=== PATIENT | female | born 1985 | race Caucasian/White ===

== ENCOUNTER 2022-04-26 23:20 | Emergency (ER) | payer OTHER ==
[2022-04-26 23:29] VITALS: BP 101/70; PULSE 100; TEMP 98; BMI 27.4
== END 2022-04-27 08:51 | disposition home or self-care (01) ==
LOC: JER 23:20
DX: F10.10 Alcohol abuse, uncomplicated (principal)
CPT/HCPCS: 99281-25

== ENCOUNTER 2022-04-27 13:04 | Inpatient (IN) | payer OTHER ==
[2022-04-27] MEDS ORDERED: diazePAM 2 MG TABLET PO ONE ×2 (13:58→18:47)
[2022-04-27] MEDS ORDERED: diazePAM 2 MG TABLET ONE ×2 (14:38→19:23)
[2022-04-27] MEDS ORDERED: ACETAMINOPHEN 1000 MG/100 ML BAG IVPB ONE (15:41)
[2022-04-27] MEDS ORDERED: SODIUM CHLORIDE 0.9% 500 ML INFUS.BAG IV ONE (15:41)
[2022-04-27] MEDS ORDERED: ACETAMINOPHEN INJECTION 100 ML IVPB ONE (15:53)
[2022-04-27 15:55] LABS: BASO % 0.5 % (0-2.0); EOS % 0.5 % (0-4.5); HEMATOCRIT 41.2 % (32.4-45.2); MCH 30.8 pg (25.7-33.7); MEAN CELL VOLUME 90.5 fl (80-96); MEAN PLT VOLUME 7.7 fl (7.5-11.1); MONO % 6.9 % (3.8-10.2); NEUT % 61.1 % (42.8-82.8); PLATELET COUNT 327 10^3/uL (134-434); RBC 4.55 M/mm3 (3.60-5.2); RDW 15.5 % (11.6-15.6)
[2022-04-27 16:11] LABS: ALBUMIN 4.4 g/dl (3.4-5.0); BLOOD UREA NITROGEN 9.7 mg/dL (7-18); CALCIUM 9.3 mg/dL (8.5-10.1)
[2022-04-27 16:14] LABS: CREATININE 0.6 mg/dL (0.55-1.3)
[2022-04-27 16:16] LABS: BILIRUBIN,TOTAL 0.4 mg/dL (0.2-1); TOT PROT 7.4 g/dl (6.4-8.2)
[2022-04-27] MEDS ORDERED: RHO(D) IMMUNE GLOBULIN 1,500 UNIT DISP.SYRIN IM ONE (18:06)
[2022-04-27] MEDS ORDERED: FOLIC ACID INJECTION - 1 MG, THIAMINE HCL 100 MG, MULTIVIT INJECTION ADULT 10 ML in SOD... IVPB ONE (21:00)
[2022-04-27] MEDS ORDERED: LORazepam 1 MG TABLET ONE (23:12)
[2022-04-27] MEDS: LORazepam 1 MG TABLET PO SCH (23:22)
[2022-04-28 03:00] VITALS: BMI 27.1
[2022-04-28] MEDS: LORazepam 1 MG TABLET PO SCH ×4 (06:02→22:34)
[2022-04-28] MEDS: ENOXAPARIN NA (PORCINE) 40 MG/0.4 ML DISP.SYRIN SQ SCH (09:23)
[2022-04-28] MEDS: THIAMINE HCL 200 MG/2 ML VIAL IVPB SCH (09:24)
[2022-04-28 10:30] LABS: HEMATOCRIT 37.9 % (32.4-45.2); HEMOGLOBIN 13.1 GM/dL (10.7-15.3); MCH 31.3 pg (25.7-33.7); MCHC 34.5 g/dl (32.0-36.0); MEAN CELL VOLUME 90.6 fl (80-96); PLATELET COUNT 290 10^3/uL (134-434); RBC 4.19 M/mm3 (3.60-5.2); RDW 15.6 % (11.6-15.6); WHITE BLOOD COUNT 4.7 K/mm3 (4.0-10.0)
[2022-04-28 10:52] LABS: BLOOD UREA NITROGEN 7.6 mg/dL (7-18); CALCIUM 8.5 mg/dL (8.5-10.1); MAGNESIUM 2.1 mg/dL (1.8-2.4)
[2022-04-28 10:55] LABS: PHOSPHOROUS 2.5 mg/dL (2.5-4.9)
[2022-04-28 10:56] LABS: CREATININE 0.6 mg/dL (0.55-1.3)
[2022-04-28 10:59] LABS: BILIRUBIN,TOTAL 0.6 mg/dL (0.2-1)
[2022-04-28 11:05] LABS: ALBUMIN 3.2 g/dl (3.4-5.0)
[2022-04-28] MEDS: NICOTINE 7 MG/24 HOURS TOPICAL PATCH TD SCH (12:12)
[2022-04-28] MEDS: LORazepam 1 MG TABLET PO PRN (15:19)
[2022-04-28] MEDS: QUEtiapine FUMARATE 200 MG TABLET PO SCH (21:56)
[2022-04-29] MEDS: LORazepam 1 MG TABLET PO SCH ×4 (05:30→22:08)
[2022-04-29] MEDS: ONDANSETRON 4 MG/2 ML VIAL IVPUSH PRN (07:53)
[2022-04-29] MEDS: ACETAMINOPHEN 325 MG TABLET (FP) PO PRN ×2 (08:24→16:31)
[2022-04-29 08:45] LABS: BASO % 0.4 % (0-2.0); EOS % 1.3 % (0-4.5); HEMATOCRIT 41.3 % (32.4-45.2); HEMOGLOBIN 14.1 GM/dL (10.7-15.3); LYMPH % 39.9 % (8-40); MCH 30.9 pg (25.7-33.7); MCHC 34.2 g/dl (32.0-36.0); MEAN CELL VOLUME 90.3 fl (80-96); MONO % 9.5 % (3.8-10.2); NEUT % 48.9 % (42.8-82.8); PLATELET COUNT 291 10^3/uL (134-434); RBC 4.57 M/mm3 (3.60-5.2); RDW 15.6 % (11.6-15.6); WHITE BLOOD COUNT 5.4 K/mm3 (4.0-10.0)
[2022-04-29 09:01] LABS: ALBUMIN 3.6 g/dl (3.4-5.0); BLOOD UREA NITROGEN 7.9 mg/dL (7-18); MAGNESIUM 2.2 mg/dL (1.8-2.4)
[2022-04-29 09:04] LABS: CREATININE 0.6 mg/dL (0.55-1.3)
[2022-04-29 09:06] LABS: BILIRUBIN,TOTAL 0.4 mg/dL (0.2-1); TOT PROT 6.8 g/dl (6.4-8.2)
[2022-04-29] MEDS: PRENATAL VITAMINS W/ FOLIC ACID TABLET (FP) PO SCH (09:08)
[2022-04-29] MEDS: THIAMINE HCL 200 MG/2 ML VIAL IVPB SCH (09:08)
[2022-04-29] MEDS: NICOTINE 7 MG/24 HOURS TOPICAL PATCH TD SCH (09:08)
[2022-04-29] MEDS: ENOXAPARIN NA (PORCINE) 40 MG/0.4 ML DISP.SYRIN SQ SCH (09:09)
[2022-04-29] MEDS: LORazepam 1 MG TABLET PO PRN (09:41)
[2022-04-29] MEDS ORDERED: NICOTINE 14 MG/24 HOURS TOPICAL PATCH TD SCH (10:00)
[2022-04-29] MEDS: NICOTINE 21 MG/24 HOURS TOPICAL PATCH TD SCH (11:34)
[2022-04-29] MEDS: NICOTINE POLACRILEX 2 MG GUM BUC PRN ×2 (16:34→20:40)
[2022-04-29] MEDS: QUEtiapine FUMARATE 200 MG TABLET PO SCH (21:02)
[2022-04-30] MEDS: LORazepam 0.5 MG TABLET PO PRN ×2 (01:31→13:51)
[2022-04-30] MEDS: ACETAMINOPHEN 325 MG TABLET (FP) PO PRN ×3 (01:32→16:56)
[2022-04-30] MEDS: LORazepam 0.5 MG TABLET PO SCH ×4 (04:56→22:25)
[2022-04-30] MEDS: NICOTINE POLACRILEX 2 MG GUM BUC PRN ×4 (07:42→21:37)
[2022-04-30] MEDS: THIAMINE HCL 200 MG/2 ML VIAL IVPB SCH (09:11)
[2022-04-30] MEDS: PRENATAL VITAMINS W/ FOLIC ACID TABLET (FP) PO SCH (09:11)
[2022-04-30] MEDS: ENOXAPARIN NA (PORCINE) 40 MG/0.4 ML DISP.SYRIN SQ SCH (09:11)
[2022-04-30] MEDS: NICOTINE 21 MG/24 HOURS TOPICAL PATCH TD SCH (09:11)
[2022-04-30 11:11] LABS: HEMATOCRIT 40.5 % (32.4-45.2); HEMOGLOBIN 13.7 GM/dL (10.7-15.3); MEAN CELL VOLUME 90.9 fl (80-96); RBC 4.45 M/mm3 (3.60-5.2); WHITE BLOOD COUNT 4.1 K/mm3 (4.0-10.0)
[2022-04-30 11:12] LABS: BASO % 0.8 % (0-2.0); EOS % 1.4 % (0-4.5); LYMPH % 41.8 % (8-40); MCH 30.8 pg (25.7-33.7); MCHC 33.8 g/dl (32.0-36.0); MEAN PLT VOLUME 8.4 fl (7.5-11.1); MONO % 9.1 % (3.8-10.2); NEUT % 46.9 % (42.8-82.8); PLATELET COUNT 290 10^3/uL (134-434)
[2022-04-30 12:00] LABS: CALCIUM 8.8 mg/dL (8.5-10.1)
[2022-04-30 12:01] LABS: ALBUMIN 3.5 g/dl (3.4-5.0); BLOOD UREA NITROGEN 8.7 mg/dL (7-18); MAGNESIUM 2.1 mg/dL (1.8-2.4)
[2022-04-30 12:04] LABS: CREATININE 0.6 mg/dL (0.55-1.3)
[2022-04-30 12:05] LABS: BILIRUBIN,TOTAL 0.4 mg/dL (0.2-1)
[2022-04-30 12:06] LABS: TOT PROT 6.6 g/dl (6.4-8.2)
[2022-04-30] MEDS: ONDANSETRON 4 MG/2 ML VIAL IVPUSH PRN ×2 (13:59→18:06)
[2022-04-30] MEDS: QUEtiapine FUMARATE 200 MG TABLET PO SCH (21:15)
[2022-05-01] MEDS ORDERED: LORazepam 0.5 MG TABLET PO ONE (05:00)
[2022-05-01 05:49] VITALS: TEMP 98.3
[2022-05-01] MEDS: NICOTINE POLACRILEX 2 MG GUM BUC PRN ×2 (06:43→10:16)
[2022-05-01 08:54] LABS: BASO % 0.7 % (0-2.0); EOS % 1.7 % (0-4.5); HEMATOCRIT 39.9 % (32.4-45.2); HEMOGLOBIN 13.7 GM/dL (10.7-15.3); LYMPH % 42.5 % (8-40); MCH 31.1 pg (25.7-33.7); MCHC 34.3 g/dl (32.0-36.0); MEAN CELL VOLUME 90.7 fl (80-96); MEAN PLT VOLUME 8.1 fl (7.5-11.1); MONO % 11.7 % (3.8-10.2); NEUT % 43.4 % (42.8-82.8); PLATELET COUNT 274 10^3/uL (134-434); RBC 4.39 M/mm3 (3.60-5.2); RDW 15.1 % (11.6-15.6); WHITE BLOOD COUNT 4.5 K/mm3 (4.0-10.0)
[2022-05-01 09:33] LABS: CALCIUM 9.2 mg/dL (8.5-10.1)
[2022-05-01 09:35] LABS: ALBUMIN 3.6 g/dl (3.4-5.0); MAGNESIUM 2.3 mg/dL (1.8-2.4)
[2022-05-01 09:37] LABS: CREATININE 0.7 mg/dL (0.55-1.3)
[2022-05-01 09:39] LABS: BILIRUBIN,TOTAL 0.3 mg/dL (0.2-1); TOT PROT 6.5 g/dl (6.4-8.2)
[2022-05-01] MEDS ORDERED: THIAMINE HCL 100 MG TABLET (FP) PO SCH (10:00)
[2022-05-01] MEDS: NICOTINE 21 MG/24 HOURS TOPICAL PATCH TD SCH (10:14)
[2022-05-01] MEDS: ENOXAPARIN NA (PORCINE) 40 MG/0.4 ML DISP.SYRIN SQ SCH (10:15)
[2022-05-01] MEDS: PRENATAL VITAMINS W/ FOLIC ACID TABLET (FP) PO SCH (10:16)
[2022-05-01 11:39] VITALS: BP 101/61; PULSE 96
== END 2022-05-01 12:29 | disposition home or self-care (01) | DRG 560 ==
LOC: JER 13:04 → JERBED 17:52 → J6S 23:46
PROVIDERS: ADMIT Internal Medicine; ATTEND Nurse Practitioner Family
DX: O99.314 Alcohol use complicating childbirth (principal); O99.324 Drug use complicating childbirth; Z3A.08 8 weeks gestation of pregnancy; F10.239 Alcohol dependence with withdrawal, unspecified; E03.9 Hypothyroidism, unspecified; R56.9 Unspecified convulsions; F41.9 Anxiety disorder, unspecified; Z88.0 Allergy status to penicillin
CPT/HCPCS: 36415; 76817-TC; 80053; 83735; 84100; 84443; 84702; 85025; 85027; 86850; 86900; 86901; 86999; 93005; 93010; 99281-25; 99285-25; C9803-CS; J1561; U0003; U0005